=== PATIENT | female | born 1935 | race Caucasian/White ===

== ENCOUNTER 2020-01-08 07:30 | Observation (INO) | payer MEDICARE, OTHER ==
--- NOTE | 2020-01-08 09:00 | RADIOLOGY REPORT (SQ) ---
EXAM DESCRIPTION: CT HEAD WITHOUT IMAGES COMPLETED DATE/TIME: 01/08/2020 8:15 am REASON FOR STUDY: bed [address] hernandez COMPARISON: None. TECHNIQUE: Axial images acquired through the brain without intravenous contrast. Images reviewed wi th bone, brain and subdural windows. Additional sagittal and coronal reconstructions were generated. Images stored on PACS. All CT scanners at this facility use dose modulation, iterative reconstruction, and/or weight based d osing when appropriate to reduce radiation dose to as low as reasonably achievable (ALARA). [facility]: Dose Right [facility]: CareDose [facility]: Dose Right [facility]: Teradose 4D [facility]: [employer] RADIATION DOSE: CT Rad equipment meets quality standard of care and radiation dose reduction techniq ues were employed. CTDIvol: 53.2 mGy. DLP: 1017 mGy-cm. mGy. LIMITATIONS: None. FINDINGS: VENTRICLES: Normal size and contour. CEREBRUM: No masses. No hemorrhage. No midline shift. No evidence for acute infarction. Normal gra y/white matter differentiation. No areas of low density in the white matter. CEREBELLUM: No masses. No hemorrhage. No alteration of density. No evidence for acute infarction. EXTRAAXIAL SPACES: No fluid collections. No masses. ORBITS AND GLOBE: No intra- or extraconal masses. Normal contour of globe without masses. CALVARIUM: No fracture. PARANASAL SINUSES: No fluid or mucosal thickening. SOFT TISSUES: No mass or hematoma. OTHER: No other significant finding. IMPRESSION: NORMAL BRAIN CT WITHOUT CONTRAST. EVIDENCE OF ACUTE STROKE: NO. COMMENT: Quality ID # [id number]: Final reports with documentation of one or more dose reduction techniques (e.g., Automated exposure control, adjustment of the mA and/or kV according to patient size, use of iterative reconstruction technique) TECHNICAL DOCUMENTATION: JOB ID: [id number] 2010 [employer]- All Rights Reserved Reading location - IP/workstation name: [email or web address]
[2020-01-08 09:49] LABS: ABSOLUTE LYMPHOCYTES (AUTO) 0.4 10^3/uL (0.5-4.7); ABSOLUTE MONOCYTES (AUTO) 0.2 10^3/uL (0.1-1.4); ABSOLUTE NEUT (AUTO) 3.2 10^3/uL (1.7-8.2); BASOPHILS % (AUTO) 0.6 % (0-2); EOSINOPHILS % (AUTO) 0.6 % (0-6); HEMATOCRIT 39.7 % (36.0-47.0); HEMOGLOBIN 13.5 g/dL (12.0-15.5); LYMPHOCYTES % (AUTO) 10.2 % (13-45); MEAN CORPUSCULAR HEMOGLOBIN 32.2 pg (27.0-33.4); MEAN CORPUSCULAR HGB CONC 34.1 g/dL (32.0-36.0); MEAN CORPUSCULAR VOLUME 94 fl (80-97); MONOCYTES % (AUTO) 5.6 % (3-13); PLATELET COUNT 146 10^3/uL (150-450); RED CELL DISTRIBUTION WIDTH 13.6 % (11.5-14.0); TOTAL CELLS COUNTED % (AUTO) 100 %; WHITE BLOOD COUNT 3.8 10^3/uL (4.0-10.5)
[2020-01-08 09:54] LABS: ALBUMIN 4.2 g/dL (3.5-5.0); ALKALINE PHOSPHATASE 66 U/L (38-126); ANION GAP 5 (5-19); ASPARTATE AMINO TRANSFERASE 29 U/L (14-36); BILIRUBIN,TOTAL 0.7 mg/dL (0.2-1.3); BLOOD UREA NITROGEN 14 mg/dL (7-20); CALCIUM 9.1 mg/dL (8.4-10.2); CARBON DIOXIDE 28 mmol/L (22-30); CHLORIDE 105 mmol/L (98-107); CREATINE KINASE 48 U/L (30-135); GLUCOSE 109 mg/dL (75-110); POTASSIUM 4.1 mmol/L (3.6-5.0); TOTAL PROTEIN 7.1 g/dL (6.3-8.2)
[2020-01-08 10:05] LABS: CREATINE KINASE MB 0.74 ng/mL (<4.55)
[2020-01-08 10:06] LABS: TROPONIN I < 0.012 ng/mL
[2020-01-08] MEDS ORDERED: ASPIRIN 81 MG TABLET, CHEWABLE PO ONE (11:16)
[2020-01-08 11:17] LABS: APPEARANCE,URINE CLEAR; BILIRUBIN,URINE NEGATIVE (NEGATIVE); COLOR,URINE STRAW; GLUCOSE, URINE NEGATIVE (NEGATIVE); KETONES,URINE NEGATIVE (NEGATIVE); LEUKOCYTE ESTERASE,URINE NEGATIVE (NEGATIVE); NITRITE,URINE NEGATIVE (NEGATIVE); PROTEIN,URINE NEGATIVE (NEGATIVE); URINE SPECIFIC GRAVITY 1.003; UROBILINOGEN,URINE NEGATIVE mg/dL (<2.0)
--- NOTE | 2020-01-08 11:24 | ER Document Report ---
ED General - General Chief Complaint: Dizziness Stated Complaint: DIZZINESS Time Seen by Provider: 01/08/20 07:43 TRAVEL OUTSIDE OF THE [place] IN LAST 30 DAYS: No - HPI Notes: Chief complaint: Dizziness This very is very unfortunate: 84-year-old female with no known history of stroke or TIA reports that over the last 2 days she has had some episodes of feeling lightheaded and dizzy with standing upright. Yesterday when this occurred her vision seem to transiently go black in both eyes. She was able to sit down without falling and the episode quickly. This morning when she got up around 5:30 AM she was walking to the bathroom and suddenly had these sensation of profound spinning of the room to the point that she had lowered herself to the floor and crawl to the bathroom. She endured the symptoms for over 30 minutes and was extremely nauseated but did not vomit. She was able to reach her cell phone and call 1 of her neighbors who came to assist her. They subsequently called EMS. EMS crew gave the patient Marcel FRAUSTOArelis in transit. Her nausea completely resolved by the time she arrived here and her dizziness was greatly improved. She denies any sensory loss. She denies any motor impairment. She denies any headache. She denies any difficulty with speaking or swallowing. Patient was a former cigarette smoker but quit many years ago. Patient says she had had some episodes of what sounds like orthostatic hypotension years ago had been evaluated extensively at [facility] with no specific pathology identified. She says she avoids most medications and the only thing she regularly uses now is a Spiriva inhaler for diagnosis of mild COPD. Patient specifically denies any known history of hypertension or diabetes mellitus. She denies any known history of coronary disease. She denies any recent palpitations or chest pain. Patient is currently living alone and says that she travels frequently from here to [place] driving herself. - Related Data Allergies/Adverse Reactions: codeine Allergy (Verified 01/08/20 08:11) hydromorphone [From Dilaudid] Allergy (Verified 01/08/20 08:11) morphine Allergy (Verified 01/08/20 08:11) oxycodone Allergy (Verified 01/08/20 08:11) Penicillins Allergy (Verified 01/08/20 08:11) Sulfa (Sulfonamide Antibiotics) Allergy (Verified 01/08/20 08:11) Tetracyclines Allergy (Verified 01/08/20 08:11) Home Medications: Spiriva, Ambien Past Medical History - General Information source: Patient, Emergency Med Personnel, [facility] Records - Social History Smoking Status: Former Smoker Frequency of alcohol use: Rare Drug Abuse: None Family History: CVA - Past Medical History Cardiac Medical History: Denies: Hx Coronary Artery Disease, Hx Heart Attack, Hx Hypercholesterolemia, Hx Hypertension, Hx Pulmonary Embolism Pulmonary Medical History: Reports: Hx COPD Musculoskeletal Medical History: Reports Hx Arthritis Past Surgical History: Reports: Hx Mastectomy - R breast Review of Systems - Review of Systems Notes: Constitutional: Negative for fever. HENT: Negative for sore throat. Eyes: Negative for visual changes. Cardiovascular: Negative for chest pain. Respiratory: Negative for shortness of breath. Gastrointestinal: Negative for abdominal pain, vomiting or diarrhea. Genitourinary: Negative for dysuria. Musculoskeletal: Negative for back pain. Skin: Negative for rash. Neurological: As per HPI. 10 point ROS negative except as marked above and in HPI. Physical Exam - Vital signs Vitals: BP Pulse Ox 159/68 H 100 01/08/20 07:32 01/08/20 07:32 - Notes Notes: GENERAL: Well-developed well-nourished appearing in no acute distress. SKIN: Good turgor no rashes. HEAD: Normocephalic atraumatic. EYES: PERRLA. EOMI. Conjunctivae and sclerae clear. EARS: CANALS AND TMS CLEAR. NOSE: CLEAR. MOUTH: Moist mucosa. Good dentition. No stridor or edema. No drooling. NECK: No bruits. Supple. No masses or thyromegaly. No adenopathy. Carotids 2+ without bruits. No JVD. BACK: Symmetrical without tenderness. CHEST: Respirations unlabored. Breath sounds clear and symmetrical. HEART: Regular rhythm. No murmur gallop or rub. ABDOMEN: Soft nontender without masses, organomegaly or rebound. Bowel sounds normally active. No bruits. GENITALIA: Deferred. EXTREMITIES: Moderate degenerative changes of interphalangeal joints both hands. No edema. No calf tenderness. Cap refill less than 1.5 seconds. Dorsalis pedis and posterior tibial pulses 3+ and symmetrical. NEUROLOGICAL: GCS 15. Alert and oriented x3. Fluent speech. Cranial nerves II through XII intact. Sensorimotor and cerebellar normal. Normal tone. PSYCHIATRIC: Appropriate affect. Course - Re-evaluation Re-evalutation: 01/08/20 11:29 This lady is possibly having posterior circulation TIAs. Particularly in view of her age and her current status of living alone I think she is at substantial fall risk and for this reason I recommended inpatient admission and further vascular work-up. Patient is strongly opposed to this and says that she has a family member she can stay with and will follow-up with neurology on an outpatient basis. I started her on aspirin today and recommend that she see her primary care physician and/or neurologist to obtain further outpatient studies including brain MRI, echocardiogram and carotid duplex scan. 01/08/20 13:15 We tried to ambulate the patient and she is still significantly ataxic. She now agrees that she probably cannot function at home and is willing to be admitted. I spoken with Dr. Vasquez the on-call hospitalist who has accepted for admission. - Vital Signs Vital signs: Temp Pulse Resp BP Pulse Ox 97.6 F 70 20 145/84 H 98 01/08/20 07:56 01/08/20 07:56 01/08/20 12:01 01/08/20 12:01 01/08/20 12:01 - Laboratory Result Diagrams: 01/08/20 09:19 01/08/20 09:19 Laboratory results interpreted by me: 01/08/20 09:19 WBC 3.8 L Plt Count 146 L Lymph % (Auto) 10.2 L Absolute Lymphs (auto) 0.4 L Seg Neutrophils % 83.0 H - Diagnostic Test Radiology reviewed: Reports reviewed - Noncontrast head CT per radiologist:normal - EKG Interpretation by Me Additional EKG results interpreted by me: 01/08/20 11:27 Twelve-lead EKG from 0746 hrs. reviewed contemporaneously by me showing normal sinus rhythm with a rate of 66 and a normal QRS axis of +33 degrees. Intervals are normal. Patient has no acute ST/T wave changes present. Indication for current study: Vertigo. Discharge - Discharge Clinical Impression: Transient ischemic attack, posterior circulation, acute Condition: Good Disposition: ADMITTED INPATIENT Unit Admitted: Telemetry Instructions: Antinausea Medication ([facility]), Dizziness ([facility]), Vertigo ([facility]) Prescriptions: Meclizine HCl [Antivert 25 mg Tablet] 25 mg PO TID PRN #21 tablet PRN Reason: Ondansetron [Zofran Odt 4 mg Tablet] 1 - 2 tab PO Q4H PRN #15 tab.rapdis PRN Reason: For Nausea/Vomiting
--- NOTE | 2020-01-08 14:21 | PDOC H&P ---
History of Present Illness History of Present Illness: LEXIE ERWIN is a 84 year old female with a history of COPD he is only medication is Spiriva who comes in after an episode of dizziness and nausea this morning. She said yesterday morning she got up and her vision was a little blurry and she was dizzy for a moment but she quickly recovered. This morning she said she got up out of bed and felt very dizzy and got nauseated. She said she got down into the floor on her hands and knees because the room was spinning and crawled to the bathroom. A friend of hers was able to come and help her and they called EMS. She said the whole episode lasted about 30 minutes and had pretty much resolved by the time she got to the ER. Now she has trouble when she sits up. She when that happens she gets a little dizzy. When she sits back of the head of the bed about 30 degrees she has no symptoms. She has symptoms of dizziness when she looks to the left and up simultaneously. She had a similar series of episodes about 5 years ago. She has not vomited. She has not had any fevers. No sensory disturbance. No numbness or tingling or weakness. No slurring of her speech. No trouble chewing or swallowing. In fact, she was drinking water and eating crackers when I came into the room. Past Medical History Cardiac Medical History: Denies: Coronary Artery Disease, Myocardial Infarction, Hyperlipidema, Hypertension, Pulmonary Embolism Pulmonary Medical History: Reports: Chronic Obstructive Pulmonary Disease (COPD) Musculoskeltal Medical History: Reports: Arthritis Past Surgical History Past Surgical History: Reports: Mastectomy - R breast Social History Smoking Status: Former Smoker Family History Family History: CVA Parental Family History Reviewed: Yes - Mother had a stroke and vertigo Children Family History Reviewed: Yes Sibling(s) Family History Reviewed.: Yes Medication/Allergy Home Medications: Meclizine HCl [Antivert 25 mg Tablet] 25 mg PO TID PRN #21 tablet 01/08/20 Ondansetron [Zofran Odt 4 mg Tablet] 1 - 2 tab PO Q4H PRN #15 tab.rapdis 01/08/20 Allergies/Adverse Reactions: codeine Allergy (Verified 01/08/20 08:11) hydromorphone [From Dilaudid] Allergy (Verified 01/08/20 08:11) morphine Allergy (Verified 01/08/20 08:11) oxycodone Allergy (Verified 01/08/20 08:11) Penicillins Allergy (Verified 01/08/20 08:11) Sulfa (Sulfonamide Antibiotics) Allergy (Verified 01/08/20 08:11) Tetracyclines Allergy (Verified 01/08/20 08:11) Review of Systems All systems: reviewed and no additional remarkable complaints except as stated - All systems were reviewed and were negative except as noted in the HPI Physical Exam Vital Signs: Temp Pulse Resp BP Pulse Ox 97.6 F 70 13 123/75 100 01/08/20 07:56 01/08/20 07:56 01/08/20 13:01 01/08/20 13:01 01/08/20 13:01 Intake & Output 01/07/20 01/08/20 01/09/20 06:59 06:59 06:59 Weight 61.689 kg General appearance: PRESENT: no acute distress, cooperative, disheveled, thin Head exam: PRESENT: atraumatic, normocephalic Eye exam: PRESENT: EOMI, PERRLA. ABSENT: conjunctival injection, nystagmus, scleral icterus Ear exam: PRESENT: normal external ear exam Mouth exam: PRESENT: moist, neck supple Throat exam: ABSENT: post pharyngeal erythema Neck exam: PRESENT: full ROM. ABSENT: carotid bruit, JVD, lymphadenopathy, meningismus, tenderness, thyromegaly Respiratory exam: PRESENT: clear to auscultation jose, symmetrical, unlabored. ABSENT: accessory muscle use, chest wall tenderness, crackles, prolonged expiratory phas, rhonchi, tachypnea, wheezes Cardiovascular exam: PRESENT: RRR, +S1, +S2 Pulses: PRESENT: normal carotid pulses Vascular exam: PRESENT: normal capillary refill GI/Abdominal exam: PRESENT: normal bowel sounds, soft. ABSENT: distended, guarding, rebound, tenderness Extremities exam: ABSENT: clubbing, pedal edema Musculoskeletal exam: PRESENT: normal inspection. ABSENT: deformity Neurological exam: PRESENT: alert, awake, oriented to person, oriented to place, oriented to time, oriented to situation, CN II-XII grossly intact, other - Dizziness with a sensation of the room spinning is elicited when the patient looks to her left and up. ABSENT: motor sensory deficit Psychiatric exam: PRESENT: appropriate affect, normal mood Skin exam: PRESENT: dry, warm Results Laboratory Results: 01/08/20 09:19 01/08/20 09:19 01/08/20 01/08/20 01/08/20 09:19 09:19 10:52 WBC 3.8 L RBC 4.20 Hgb 13.5 Hct 39.7 MCV 94 MCH 32.2 MCHC 34.1 RDW 13.6 Plt Count 146 L Seg Neutrophils % 83.0 H Sodium 137.9 Potassium 4.1 Chloride 105 Carbon Dioxide 28 Anion Gap 5 BUN 14 Creatinine 0.61 Est GFR ( Amer) > 60 Glucose 109 Calcium 9.1 Total Bilirubin 0.7 AST 29 Alkaline Phosphatase 66 Total Protein 7.1 Albumin 4.2 Urine Color STRAW Urine Appearance CLEAR Urine pH 8.0 Ur Specific [place] 1.003 Urine Protein NEGATIVE Urine Glucose (UA) NEGATIVE Urine Ketones NEGATIVE Urine Blood NEGATIVE Urine Nitrite NEGATIVE Ur Leukocyte Esterase NEGATIVE Urine WBC (Auto) 0 Urine RBC (Auto) 0 01/08/20 01/08/20 09:19 09:19 Creatine Kinase 48 CK-MB (CK-2) 0.74 Troponin I < 0.012 Impressions: Head CT 01/08/20 00:00 IMPRESSION: NORMAL BRAIN CT WITHOUT CONTRAST. EVIDENCE OF ACUTE STROKE: NO. Assessment and Plan - Diagnosis (1) Benign paroxysmal positional vertigo Qualifiers: Laterality: left Qualified Code(s): H81.12 - Benign paroxysmal vertigo, left ear Is this a current diagnosis for this admission?: Yes Plan: There is nothing about her history or her examination that suggests a cerebrovascular accident or a transient ischemic attack. This is a classical case of vertigo. Her symptoms are reproducible with movement to a specific r egion and resolve with cessation of that movement. I am going to give her some meclizine. She lives at home by herself, so we will monitor her overnight until she can make some accommodation to have someone with her if her symptoms have not resolved by tomorrow. (2) COPD (chronic obstructive pulmonary disease) Qualifiers: COPD type: chronic bronchitis Chronic bronchitis type: simple Qualified Code(s): J41.0 - Simple chronic bronchitis Is this a current diagnosis for this admission?: Yes Plan: We will continue Spiriva - Time Time Spent with patient: 35 or more minutes
[2020-01-08] MEDS: MECLIZINE HCL 25 MG TABLET PO PRN ×2 (14:29→22:42)
[2020-01-08] MEDS ORDERED: ONDANSETRON HCL INJ/PF 4 MG/2 ML SDV IV PRN (17:58)
--- NOTE | 2020-01-08 22:13 | EKG REPORT ---
SEVERITY:- ABNORMAL ECG - SINUS RHYTHM LOW VOLTAGE IN FRONTAL LEADS CONSIDER ANTEROSEPTAL INFARCT : Confirmed by: Mirna Fulton 08-Jan-2020 22:12:27
[2020-01-09] MEDS: UMECLIDINIUM BROMIDE 62.5 MCG/DOSE IH SCH (11:06)
--- NOTE | 2020-01-09 17:52 | PDOC PROGRESS REPORT ---
Subjective Progress Note for:: 01/09/20 Subjective:: No adverse events overnight. She has been eating and drinking without difficulty. She is extremely reluctant to go home today. She still has some dizziness when she tries to get up to go to the bathroom. We did some Herman maneuvers today with an improvement in her symptoms. She was able to sit up in the bed upright without support for about 10 minutes and she tolerated it well. Reason For Visit: BENIGN PAROXYSMAL POSITIONAL VERTIGO Physical Exam Vital Signs: Temp Pulse Resp BP Pulse Ox 98.1 F 57 L 20 118/54 L 99 01/09/20 17:03 01/09/20 17:03 01/09/20 17:03 01/09/20 17:03 01/09/20 17:03 Intake & Output 01/08/20 01/09/20 01/10/20 06:59 06:59 06:59 Intake Total 482 360 Balance 482 360 Weight 61.9 kg General appearance: PRESENT: no acute distress, cooperative, disheveled Eye exam: PRESENT: EOMI, PERRLA. ABSENT: conjunctival injection, nystagmus, scleral icterus Respiratory exam: PRESENT: clear to auscultation jose, symmetrical, unlabored. ABSENT: accessory muscle use, chest wall tenderness, prolonged expiratory phas, rhonchi, tachypnea, wheezes Cardiovascular exam: PRESENT: RRR, +S1, +S2 Pulses: PRESENT: normal carotid pulses Vascular exam: PRESENT: normal capillary refill GI/Abdominal exam: PRESENT: normal bowel sounds, soft. ABSENT: distended, guarding, rebound, tenderness Extremities exam: ABSENT: clubbing, pedal edema Musculoskeletal exam: PRESENT: normal inspection. ABSENT: deformity Neurological exam: PRESENT: alert, awake, oriented to person, oriented to place, oriented to situation, other - She still has some dizziness when she turns her head to the left and looks up. This resolves when she turns her head to a neutral position. She still has a little bit of dizziness whenever she sits upright completely. Psychiatric exam: PRESENT: anxious Skin exam: PRESENT: dry, warm Results Laboratory Results: 01/08/20 09:19 01/08/20 09:19 01/08/20 01/08/20 09:19 09:19 Creatine Kinase 48 CK-MB (CK-2) 0.74 Troponin I < 0.012 Impressions: Head CT 01/08/20 00:00 IMPRESSION: NORMAL BRAIN CT WITHOUT CONTRAST. EVIDENCE OF ACUTE STROKE: NO. Assessment and Plan - Diagnosis (1) Benign paroxysmal positional vertigo Qualifiers: Laterality: left Qualified Code(s): H81.12 - Benign paroxysmal vertigo, le ft ear Is this a current diagnosis for this admission?: Yes Plan: She had some improvement in her symptoms with Herman maneuvers. I left detailed instructions written on the white board in her room and with her nurse. I want her to do these 3 times a day. She also has PRN meclizine ordered. There is no suspicion of stroke. Reasons why were explained in detail in her H&P. Anticipate discharge home tomorrow. (2) COPD (chronic obstructive pulmonary disease) Qualifiers: COPD type: chronic bronchitis Chronic bronchitis type: simple Qualified Code(s): J41.0 - Simple chronic bronchitis Is this a current diagnosis for this admission?: Yes Plan: We will continue Spiriva - Time Time Spent with patient: 25-34 minutes
[2020-01-09] MEDS: MECLIZINE HCL 25 MG TABLET PO PRN (18:41)
[2020-01-10] MEDS ORDERED: DIPHENHYDRAMINE HCL 25 MG CAPSULE PO PRN (00:08)
[2020-01-10] MEDS: UMECLIDINIUM BROMIDE 62.5 MCG/DOSE IH SCH (10:53)
[2020-01-10] MEDS: MECLIZINE HCL 25 MG TABLET PO PRN (11:00)
[2020-01-10 13:49] VITALS: BP 121/56
--- NOTE | 2020-01-10 18:22 | PDOC DISCHARGE SUMMARY ---
Impression - Admit/DC Date/PCP Admission Date/Primary Care Provider: 01/08/20 13:43 Discharge Date: 01/10/20 - Discharge Diagnosis (1) Benign paroxysmal positional vertigo Is this a current diagnosis for this admission?: Yes (2) COPD (chronic obstructive pulmonary disease) Is this a current diagnosis for this admission?: Yes - Additional Information Resuscitation Status: Full Code Discharge Diet: Regular Discharge Activity: Activity As Tolerated, Slowly Increase Activity Referrals: NUVIA ESTEVEZ MD [NO LOCAL MD] - 01/17/20 1:15 pm (APPT. AT [facility] [address] [place] [address]. PHONE# [phone] WITH AMANDA LINK) Prescriptions: Meclizine HCl [Antivert 25 mg Tablet] 25 mg PO Q8HP PRN #30 tablet PRN Reason: Ondansetron HCl 4 mg PO Q4HP PRN #20 tablet PRN Reason: Home Medications: Tiotropium [place] [Spiriva Handihaler 5 Cap/Kit (18 Mcg/Cap)] 1 cap IH DAILY 01/08/20 Meclizine HCl [Antivert 25 mg Tablet] 25 mg PO Q8HP PRN #30 tablet 01/10/20 Ondansetron HCl 4 mg PO Q4HP PRN #20 tablet 01/10/20 History of Present Illiness History of Present Illness: LEXIE ERWIN is a 84 year old female with a history of COPD he is only medication is Spiriva who comes in after an episode of dizziness and nausea this morning. She said yesterday morning she got up and her vision was a little blurry and she was dizzy for a moment but she quickly recovered. This morning she said she got up out of bed and felt very dizzy and got nauseated. She said she got down into the floor on her hands and knees because the room was spinning and crawled to the bathroom. A friend of hers was able to come and help her and they called EMS. She said the whole episode lasted about 30 minutes and had pretty much resolved by the time she got to the ER. Now she has trouble when she sits up. She when that happens she gets a little dizzy. When she sits back of the head of the bed about 30 degrees she has no symptoms. She has symptoms of dizziness when she looks to the left and up simultaneously. She had a similar series of episodes about 5 years ago. She has not vomited. She has not had any fevers. No sensory disturbance. No numbness or tingling or weakness. No slurring of her speech. No trouble chewing or swallowing. In fact, she was drinking water and eating crackers when I came into the room. Hospital Course Hospital Course: We monitored her and did Herman maneuvers on her and she had a substantial improvement in her symptoms. She is feeling much more confident in her ability to go home now. She is able to sit upright without symptoms. She says she still gets a little dizzy from time to time but I instructed her again on her Herman maneuvers and she was able to do them independently without further direction. She was given prescriptions for meclizine and Zofran. She was eating and drinking without difficulty. Her labs and examination were reassuring and she was discharged in stable condition. Physical Exam Vital Signs: Temp Pulse Resp BP Pulse Ox 97.9 F 63 16 159/68 H 99 01/10/20 12:45 01/10/20 12:45 01/10/20 12:45 01/10/20 12:45 01/10/20 12:45 Intake & Output 01/09/20 01/10/20 01/11/20 06:59 06:59 06:59 Intake Total 476 435 7317 Balance 503 565 3710 Weight 61.9 kg 60.9 kg General appearance: PRESENT: no acute distress, cooperative, disheveled Eye exam: PRESENT: EOMI, PERRLA. ABSENT: conjunctival injection, nystagmus, scleral icterus Respiratory exam: PRESENT: clear to auscultation jose, symmetrical, unlabored. ABSENT: accessory muscle use, chest wall tenderness, prolonged expiratory phas, rhonchi, tachypnea, wheezes Cardiovascular exam: PRESENT: RRR, +S1, +S2 Pulses: PRESENT: normal carotid pulses Vascular exam: PRESENT: normal capillary refill GI/Abdominal exam: PRESENT: normal bowel sounds, soft. ABSENT: distended, guarding, rebound, tenderness Extremities exam: ABSENT: clubbing, pedal edema Musculoskeletal exam: PRESENT: normal inspection. ABSENT: deformity Neurological exam: PRESENT: alert, awake, oriented to person, oriented to place, oriented to situation, other - She still has some dizziness when she turns her head to the left and looks up, but it has nearly completely resolved Psychiatric exam: PRESENT: Appropriate affect, normal mood Skin exam: PRESENT: dry, warm Results Laboratory Results: WBC 3.8 10^3/uL (4.0-10.5) L 01/08/20 09:19 RBC 4.20 10^6/uL (3.72-5.28) 01/08/20 09:19 Hgb 13.5 g/dL (12.0-15.5) 01/08/20 09:19 Hct 39.7 % (36.0-47.0) 01/08/20 09:19 MCV 94 fl (80-97) 01/08/20 09:19 MCH 32.2 pg (27.0-33.4) 01/08/20 09:19 MCHC 34.1 g/dL (32.0-36.0) 01/08/20 09:19 RDW 13.6 % (11.5-14.0) 01/08/20 09:19 Plt Count 146 10^3/uL (150-450) L 01/08/20 09:19 Lymph % (Auto) 10.2 % (13-45) L 01/08/20 09:19 [place] % (Auto) 5.6 % (3-13) 01/08/20 09:19 Eos % (Auto) 0.6 % (0-6) 01/08/20 09:19 Baso % (Auto) 0.6 % (0-2) 01/08/20 09:19 Absolute Neuts (auto) 3.2 10^3/uL (1.7-8.2) 01/08/20 09:19 Absolute Lymphs (auto) 0.4 10^3/uL (0.5-4.7) L 01/08/20 09:19 Absolute Monos (auto) 0.2 10^3/uL (0.1-1.4) 01/08/20 09:19 Absolute Eos (auto) 0.0 10^3/uL (0.0-0.6) 01/08/20 09:19 Absolute Basos (auto) 0.0 10^3/uL (0.0-0.2) 01/08/20 09:19 Seg Neutrophils % 83.0 % (42-78) H 01/08/20 09:19 Sodium 137.9 mmol/L (137-145) 01/08/20 09:19 Potassium 4.1 mmol/L (3.6-5.0) 01/08/20 09:19 Chloride 105 mmol/L (98-107) 01/08/20 09:19 Carbon Dioxide 28 mmol/L (22-30) 01/08/20 09:19 Anion Gap 5 (5-19) 01/08/20 09:19 BUN 14 mg/dL (7-20) 01/08/20 09:19 Creatinine 0.61 mg/dL (0.52-1.25) 01/08/20 09:19 Est GFR ( Amer) > 60 (>60) 01/08/20 09:19 Est GFR (MDRD) Non-Af > 60 (>60) 01/08/20 09:19 Glucose 109 mg/dL (75-110) 01/08/20 09:19 POC Glucose 104 mg/dL (70-110) 01/08/20 09:51 Calcium 9.1 mg/dL (8.4-10.2) 01/08/20 09:19 Total Bilirubin 0.7 mg/dL (0.2-1.3) 01/08/20 09:19 Direct Bilirubin 0.0 mg/dL (0.0-0.4) 01/08/20 09:19 Neonat Total Bilirubin Not Reportable 01/08/20 09:19 Neonat Direct Bilirubin Not Reportable 01/08/20 09:19 Neonat Indirect Bili Not Reportable 01/08/20 09:19 AST 29 U/L (14-36) 01/08/20 09:19 ALT 18 U/L (<35) 01/08/20 09:19 Alkaline Phosphatase 66 U/L (38-126) 01/08/20 09:19 Creatine Kinase 48 U/L (30-135) 01/08/20 09:19 CK-MB (CK-2) 0.74 ng/mL (<4.55) 01/08/20 09:19 Troponin I < 0.012 ng/mL 01/08/20 09:19 Total Protein 7.1 g/dL (6.3-8.2) 01/08/20 09:19 Albumin 4.2 g/dL (3.5-5.0) 01/08/20 09:19 Urine Color STRAW 01/08/20 10:52 Urine Appearance CLEAR 01/08/20 10:52 Urine pH 8.0 (5.0-9.0) 01/08/20 10:52 Ur Specific [place] 1.003 01/08/20 10:52 Urine Protein NEGATIVE mg/dL (NEGATIVE) 01/08/20 10:52 Urine Glucose (UA) NEGATIVE mg/dL (NEGATIVE) 01/08/20 10:52 Urine Ketones NEGATIVE mg/dL (NEGATIVE) 01/08/20 10:52 Urine Blood NEGATIVE (NEGATIVE) 01/08/20 10:52 Urine Nitrite NEGATIVE (NEGATIVE) 01/08/20 10:52 Urine Bilirubin NEGATIVE (NEGATIVE) 01/08/20 10:52 Urine Urobilinogen NEGATIVE mg/dL (<2.0) 01/08/20 10:52 Ur Leukocyte Esterase NEGATIVE (NEGATIVE) 01/08/20 10:52 Urine WBC (Auto) 0 /HPF 01/08/20 10:52 Urine RBC (Auto) 0 /HPF 01/08/20 10:52 Urine Bacteria (Auto) TRACE /HPF 01/08/20 10:52 Urine Mucus (Auto) RARE /LPF 01/08/20 10:52 Urine Ascorbic Acid NEGATIVE (NEGATIVE) 01/08/20 10:52 01/08/20 09:19 CK-MB (CK-2) 0.74 Troponin I < 0.012 Impressions: Head CT 01/08/20 00:00 IMPRESSION: NORMAL BRAIN CT WITHOUT CONTRAST. EVIDENCE OF ACUTE STROKE: NO. Plan Time Spent: Greater than 30 Minutes Stroke Is this a Stroke Patient?: No Acute Heart Failure - Is this a Heart Failure Patient?: No
== END 2020-01-10 13:25 | disposition home or self-care (01) ==
LOC: ER 07:30 → INTOOBSV 13:43 → EH 13:43 → 5 17:30 → 4W 01-09 23:25
PROVIDERS: ADMIT Family Medicine; ATTEND Family Medicine
DX: H81.12 Benign paroxysmal vertigo, left ear (principal); J41.0 Simple chronic bronchitis; Z79.899 Other long term (current) drug therapy; M19.90 Unspecified osteoarthritis, unspecified site; Z90.11 Acquired absence of right breast and nipple; Z87.891 Personal history of nicotine dependence; Z82.3 Family history of stroke; Z60.2 Problems related to living alone
CPT/HCPCS: 93005; 99285; 36415; 82553; 82962; 82550; 85025; 80053; 81001; 84484; 70450; 93010; A9270 ×4; J3490 ×4; J2405